=== PATIENT | female | born 1990 | race African-American/Black ===

== ENCOUNTER 2018-06-30 14:22 | Emergency (ER) | payer MEDICAID ==
[2015-02-26 14:28] VITALS: BMI 43.4
[~2018-06-30 14:22] MED LIST: IBUPROFEN600 MG PO; PERCOCET 5-3251 TAB PO; PRENATAL COMPLE1 TAB PO
[2018-06-30] MEDS ORDERED: PHENERGAN DM SYR5 ML PO (20:07)
[2018-06-30] MEDS ORDERED: VIBRAMYCIN50 MG/5 ML PO (20:07)
[2018-06-30] MEDS ORDERED: TORADOL10 MG PO (20:07)
== END 2018-06-30 15:51 | disposition left against medical advice (07) ==
LOC: D.ER 14:22
DX: M54.5 Low back pain (principal); J06.9 Acute upper respiratory infection, unspecified; V43.52XA Car driver injured in collision with other type car in traffic accident, initial encounter; Y93.89 Activity, other specified; Y92.410 Unspecified street and highway as the place of occurrence of the external cause; F17.200 Nicotine dependence, unspecified, uncomplicated

== ENCOUNTER 2018-06-30 16:44 | Emergency (ER) | payer MEDICAID ==
[~2018-06-30] VITALS: Ht 152.4 cm; Wt 102.3 kg
[2018-06-30 16:48] VITALS: Ht 152.4 cm; Wt 102.3 kg
[2018-06-30] MEDS ORDERED: PHENERGAN DM SYR5 ML PO (20:07)
[2018-06-30] MEDS ORDERED: VIBRAMYCIN50 MG/5 ML PO (20:07)
[2018-06-30] MEDS ORDERED: TORADOL10 MG PO (20:07)
[2018-06-30 20:40] VITALS: BP 140/91
== END 2018-06-30 20:15 | disposition home or self-care (01) ==
LOC: D.ER 16:44
DX: M54.5 Low back pain (principal); J06.9 Acute upper respiratory infection, unspecified; V43.52XA Car driver injured in collision with other type car in traffic accident, initial encounter; Y93.89 Activity, other specified; Y92.410 Unspecified street and highway as the place of occurrence of the external cause; F17.200 Nicotine dependence, unspecified, uncomplicated

== ENCOUNTER 2018-08-16 17:30 | Emergency (ER) | payer MEDICAID ==
[~2018-08-16] VITALS: Ht 152.4 cm; Wt 93.2 kg
[~2018-08-16 17:30] MED LIST changes: +PHENERGAN DM SYR5 ML PO; +TORADOL10 MG PO; +VIBRAMYCIN50 MG/5 ML PO
[2018-08-16 17:40] VITALS: Ht 152.4 cm; Wt 93.2 kg
[2018-08-16] MEDS ORDERED: CORTISPORIN OTI10 M1 EACH EAR (19:39)
[2018-08-16] MEDS ORDERED: VOLTAREN75 MG PO (19:39)
[2018-08-16 20:10] VITALS: BP 121/84
== END 2018-08-16 20:10 | disposition home or self-care (01) ==
LOC: D.ER 17:30
DX: H60.91 Unspecified otitis externa, right ear (principal)

== ENCOUNTER 2020-09-09 20:39 | Emergency (ER) | payer MEDICAID ==
[~2020-09-09] VITALS: Ht 152.4 cm; Wt 100.0 kg
[~2020-09-09 20:39] MED LIST changes: +CORTISPORIN OTI10 M1 EACH EAR; +VOLTAREN75 MG PO
[2020-09-09 20:42] VITALS: BP 117/77; Ht 152.4 cm; Wt 100.0 kg
[2020-09-09] MEDS ORDERED: ORALONE5 GM TOPICAL (20:48)
[2020-09-09] MEDS ORDERED: AMOXICILLIN500 M1 PO (20:48)
[2020-09-09] MEDS ORDERED: DICLOFENAC SODI50 MG PO (20:48)
[2020-09-10] MEDS ORDERED: ACETAMINOPHEN500 M1 PO (16:57)
[2020-09-10] MEDS ORDERED: CYCLOBENZAPRINE10 MG PO (16:57)
[2020-09-10] MEDS ORDERED: ORAL ANALGESIC9 GM TOPICAL (16:57)
== END 2020-09-09 20:51 | disposition home or self-care (01) ==
LOC: D.ER 20:39
DX: K02.9 Dental caries, unspecified (principal)

== ENCOUNTER 2020-09-10 16:45 | Emergency (ER) | payer MEDICAID ==
[~2020-09-10] VITALS: Ht 152.4 cm; Wt 100.0 kg
[~2020-09-10 16:45] MED LIST changes: +AMOXICILLIN500 M1 PO; +DICLOFENAC SODI50 MG PO; +ORALONE5 GM TOPICAL
[2020-09-10 16:50] VITALS: BP 148/100; Ht 152.4 cm; Wt 100.0 kg
[2020-09-10] MEDS ORDERED: ORAL ANALGESIC9 GM TOPICAL (16:57)
[2020-09-10] MEDS ORDERED: CYCLOBENZAPRINE10 MG PO (16:57)
[2020-09-10] MEDS ORDERED: ACETAMINOPHEN500 M1 PO (16:57)
== END 2020-09-10 17:09 | disposition home or self-care (01) ==
LOC: D.ER 16:45
DX: K08.89 Other specified disorders of teeth and supporting structures (principal); Z72.0 Tobacco use

== ENCOUNTER 2020-10-17 17:06 | Emergency (ER) | payer MEDICAID ==
[~2020-10-17] VITALS: Ht 152.4 cm; Wt 109.1 kg
[~2020-10-17 17:06] MED LIST changes: +ACETAMINOPHEN500 M1 PO; +CYCLOBENZAPRINE10 MG PO; +ORAL ANALGESIC9 GM TOPICAL
[2020-10-17 17:16] VITALS: BP 136/91; Ht 152.4 cm; Wt 109.1 kg
[2020-10-17] MEDS ORDERED: ORAL ANALGESIC9 GM TOPICAL (17:37)
[2020-10-17] MEDS ORDERED: CLEOCIN HCL300 MG PO (17:37)
[2020-10-17] MEDS ORDERED: VOLTAREN75 MG PO (17:37)
== END 2020-10-17 18:01 | disposition home or self-care (01) ==
LOC: D.ER 17:06
DX: K08.89 Other specified disorders of teeth and supporting structures (principal)